=== PATIENT | male | born 1965 | race Caucasian/White ===

== ENCOUNTER 2017-04-14 15:29 | Emergency (ER) | payer MEDICARE, OTHER ==
[~2017-04-14] VITALS: Ht 188 cm; Wt 106.6 kg
[2017-04-14] MEDS ORDERED: IV NORMAL SALINE 1000ML BAG 1,000 ML IV SCH (15:54)
[2017-04-14] MEDS ORDERED: ONDANSETRON PF 4 MG/2 ML VIAL. IV ONE (16:00)
[2017-04-14] MEDS ORDERED: LIDO:MAALOX:DONNATAL 1:1:1 15 ML SINGLE DOSE SWSW ONE (16:00)
[2017-04-14] MEDS ORDERED: FAMOTIDINE 20 MG/2 ML VIAL IVP ONE (16:00)
[2017-04-14] MEDS ORDERED: fentaNYL PF VIAL 100 MCG/2 ML VIAL IV PRN (16:00)
--- NOTE | 2017-04-14 16:04 | PHYS DOC ---
Adult General Chief Complaint Chief Complaint: ABDOMINAL PAIN HPI HPI Patient is a 51 year old male who presents with complaint of abdominal pain. Patient states this pain started earlier today. Patient states that the pain is sharp and located in his upper abdomen. On my evaluation, the patient stated his pain level was 8 out of 10. Patient denies any associated fever, vomiting, or bloody stools. The patient states that he has history of gastric motility problems and states he follows with a GI doctor at [facility]. Patient states that he has had similar episodes in the past. Patient states that he has had to visit an emergency department in the past for his symptoms and stated that they improves when he received nausea medicine and pain medicine. Patient states he is scheduled to see his freelance writer on May 10 to undergo endoscopy and injection of Botox into his stomach to improve gastric emptying. Patient states however he was experiencing too much pain and decided to come to the emergency department for evaluation. Patient states that he takes Prilosec and ranitidine at home for treatment of his condition. Review of Systems Review of Systems Constitutional: Denies fever or chills [] Eyes: Denies change in visual acuity, redness, or eye pain [] HENT: Denies nasal congestion or sore throat [] Respiratory: Denies cough or shortness of breath [] Cardiovascular: Denies chest pain or edema[] GI: Abdominal pain, denies nausea, vomiting, or bloody stools[] : Denies dysuria or hematuria [] Musculoskeletal: Denies back pain or joint pain [] Integument: Denies rash or skin lesions [] Neurologic: Denies headache, focal weakness or sensory changes [] All other systems were reviewed and found to be within normal limits, except as documented in this note. Current Medications Current Medications Current Medications Medications (Trade) Dose Ordered Sig/Sergio Start Time Stop Time Status Last Admin Dose Admin Famotidine (Pepcid Vial) 20 mg 1X ONCE 04/14/17 16:00 04/14/17 16:03 DC 04/14/17 16:00 20 MG Fentanyl Citrate (Fentanyl 2ml Vial) 50 mcg PRN Q15MIN PRN 04/14/17 16:00 04/15/17 15:59 04/14/17 16:11 50 MCG Multi-Ingredient Mouthwash/Gargle (Gi Cocktail Single Dose) 15 ml 1X ONCE 04/14/17 16:00 04/14/17 16:03 DC 04/14/17 16:00 15 ML Ondansetron HCl (Zofran) 4 mg 1X ONCE 04/14/17 16:00 04/14/17 16:03 DC 04/14/17 16:00 4 MG Sodium Chloride 1,000 ml @ 1,000 mls/hr Q1H 04/14/17 15:54 04/14/17 16:53 DC 04/14/17 15:54 1,000 MLS/HR Allergies Allergies Allergies Coded Allergies Type Severity Reaction Last Updated Verified No Known Drug Allergies 04/14/17 No Physical Exam Physical Exam Constitutional: Alert, afebrile, appears in moderate discomfort. [] HENT: Normocephalic, atraumatic, bilateral external ears normal, oropharynx moist, no oral exudates, nose normal. [] Eyes: PERRLA, EOMI, conjunctiva normal, no discharge. [] Neck: Normal range of motion, no tenderness, supple, no stridor. [] Cardiovascular:Heart rate regular rhythm, no murmur [] Lungs & Thorax: Bilateral breath sounds clear to auscultation [] Abdomen: Bowel sounds normal, soft, epigastric tenderness to palpation with mild guarding, no rebound tenderness, no masses, no pulsatile masses. [] Skin: Warm, dry, no erythema, no rash. [] Back: No tenderness, no CVA tenderness. [] Extremities: No tenderness, no cyanosis, no clubbing, ROM intact, no edema. [] Neurologic: Alert and oriented X 3, normal motor function, normal sensory function, no focal deficits noted. [] Current Patient Data Vital Signs Vital Signs Date Time Temp Pulse Resp B/P (MAP) Pulse Ox O2 Delivery O2 Flow Rate FiO2 04/14/17 17:30 16 95 Room Air 04/14/17 15:45 97.5 85 147/86 (106) 97.5 Lab Values Laboratory Tests Test 04/14/17 15:55 White Blood Count 5.8 x10^3/uL (4.0-11.0) Red Blood Count 4.48 x10^6/uL (4.30-5.70) Hemoglobin 13.1 g/dL (13.0-17.5) Hematocrit 38.1 % (39.0-53.0) L Mean Corpuscular Volume 85 fL (79-100) Mean Corpuscular Hemoglobin 29 pg (25-35) Mean Corpuscular Hemoglobin Concent 34 g/dL (31-37) Red Cell Distribution Width 14.4 % (11.5-14.5) Platelet Count 168 x10^3/uL (140-400) Neutrophils (%) (Auto) 59 % (31-73) Lymphocytes (%) (Auto) 30 % (24-48) Monocytes (%) (Auto) 9 % (0-9) Eosinophils (%) (Auto) 2 % (0-3) Basophils (%) (Auto) 1 % (0-3) Neutrophils # (Auto) 3.4 x10^3uL (1.8-7.7) Lymphocytes # (Auto) 1.7 x10^3/uL (1.0-4.8) Monocytes # (Auto) 0.5 x10^3/uL (0.0-1.1) Eosinophils # (Auto) 0.1 x10^3/uL (0.0-0.7) Basophils # (Auto) 0.0 x10^3/uL (0.0-0.2) Urine Collection Type Unknown Urine Color Yellow Urine Clarity Clear Urine pH 8.0 Urine Specific [place] 1.025 Urine Protein Negative mg/dL (NEG-TRACE) Urine Glucose (UA) Negative mg/dL (NEG) Urine Ketones (Stick) Negative mg/dL (NEG) Urine Blood Negative (NEG) Urine Nitrite Negative (NEG) Urine Bilirubin Negative (NEG) Urine Urobilinogen Dipstick 1.0 mg/dL (0.2 mg/dL) Urine Leukocyte Esterase Trace (NEG) Urine RBC 1-2 /HPF (0-2) Urine WBC 1-4 /HPF (0-4) Urine Amorphous Sediment Present /HPF Urine Bacteria 0 /HPF (0-FEW) Urine Hyaline Casts Few /HPF Urine Mucus Mod /LPF Sodium Level 136 mmol/L (136-145) Potassium Level 3.8 mmol/L (3.5-5.1) Chloride Level 102 mmol/L (98-107) Carbon Dioxide Level 26 mmol/L (21-32) Anion Gap 8 (6-14) Blood Urea Nitrogen 19 mg/dL (8-26) Creatinine 1.0 mg/dL (0.7-1.3) Estimated GFR (Cockcroft-Gault) 78.8 BUN/Creatinine Ratio 19 (6-20) Glucose Level 98 mg/dL (70-99) Calcium Level 8.9 mg/dL (8.5-10.1) Total Bilirubin 1.3 mg/dL (0.2-1.0) H Aspartate Amino Transferase (AST) 39 U/L (15-37) H Alanine Aminotransferase (ALT) 66 U/L (16-63) H Alkaline Phosphatase 148 U/L (46-116) H Total Protein 7.7 g/dL (6.4-8.2) Albumin 3.6 g/dL (3.4-5.0) Albumin/Globulin Ratio 0.9 (1.0-1.7) L Lipase 135 U/L (73-393) Laboratory Tests 04/14/17 15:55 Laboratory Tests 04/14/17 15:55 EKG EKG Interpreted by me: Heart rate 65, sinus rhythm, normal intervals, leftward axis , no acute ST/T-wave abnormalities present[] Radiology/Procedures Radiology/Procedures [facility] [address] [place] [address] 3 view acute abdominal series interpreted by me: Nonobstructive bowel gas pattern, no free air under the diaphragm, no pulmonary infiltrates or effusions IMAGING REPORT Signed PATIENT: LAURA PETERSON ACCOUNT: [id number] : 1965 LOCATION: ER AGE: 51 SEX: M EXAM STATUS: REG ER ORD. PHYSICIAN: ANDREW MCKENNA MD REASON: upper abdominal pain, elevated liver function tests PROCEDURE: ABDOMEN LTD Ultrasound of the right upper quadrant of the abdomen 04/14/2017 CLINICAL HISTORY: Abdominal pain with elevated liver function tests. TECHNIQUE: A real-time ultrasound examination of the right upper quadrant of the abdomen was performed. Multiple images were obtained. FINDINGS: The gallbladder is not visualized consistent with a cholecystectomy. The common bile duct measures 6.5 mm in diameter which is within normal limits. The liver is normal in size measuring 16.6 cm in length. Increased echogenicity of the liver parenchyma is seen consistent with mild fatty infiltration. No focal abnormality of the liver is seen. The visualized portions of pancreas and right kidney are within normal limits. IMPRESSION: 1. Post cholecystectomy. 2. Fatty infiltration of the liver. Electronically signed by: Javi Villaseñor MD (04/14/2017 6:02 PM) [facility] DICTATED and SIGNED BY: JAVI VILLASEÑOR MD DATE: 04/14/17 1752 CC: ANDREW MCKENNA MD; JOEL TOVAR MD ~ [] Course & Med Decision Making Course & Med Decision Making Pertinent Labs and Imaging studies reviewed. (See chart for details) Patient was given IV fluids, fentanyl, GI cocktail and Zofran in the emergency department. On reevaluation, symptoms have improved. Patient had mildly elevated liver enzymes which are likely due to presence of fatty liver. No other acute pathology noted on workup. Patient's vital signs are stable and patient is appropriate for outpatient follow-up at this time. Recommended follow -up with patient's GI doctor in the next 5-7 days and to continue on home medications as previously prescribed. Recommended return to the emergency department for any worsening symptoms. Patient voiced understanding and in agreement with treatment plan. Dragon Disclaimer Dragon Disclaimer This electronic medical record was generated, in whole or in part, using a voice recognition dictation system. Departure Departure Impression: Primary Impression: Epigastric abdominal pain Additional Impression: Elevated transaminase level Disposition: 01 HOME, SELF-CARE Condition: IMPROVED Patient Instructions: Abdominal Pain (Nonspecific) Additional Instructions: Follow-up with your freelance writer in 5-7 days for reevaluation. Continue on your home medications as previously prescribed. Return to the emergency department for any worsening symptoms. Problem Qualifiers ANDREW MCKENNA MD Apr 14, 2017 16:04
[2017-04-14 16:18] LABS: BASO % 1 % (0-3); EOS % 2 % (0-3); HEMATOCRIT 38.1 % (39.0-53.0); HEMOGLOBIN 13.1 g/dL (13.0-17.5); LYMPH # 1.7 x10^3/uL (1.0-4.8); LYMPH % 30 % (24-48); MEAN CORPUSCULAR HEMOGLOBIN 29 pg (25-35); MEAN CORPUSCULAR HGB CONC 34 g/dL (31-37); MEAN CORPUSCULAR VOLUME 85 fL (79-100); MONO % 9 % (0-9); NEUT % 59 % (31-73); PLATELET COUNT 168 x10^3/uL (140-400); RED BLOOD COUNT 4.48 x10^6/uL (4.30-5.70); RED CELL DISTRIBUTION WIDTH 14.4 % (11.5-14.5); WHITE BLOOD COUNT 5.8 x10^3/uL (4.0-11.0)
--- NOTE | 2017-04-14 16:18 | EKG ---
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
[2017-04-14 16:20] LABS: BILIRUBIN,URINE NEGATIVE (NEG); GLUCOSE,URINE NEGATIVE (NEG); NITRITE,URINE NEGATIVE (NEG); PROTEIN,URINE NEGATIVE (NEG-TRACE)
[2017-04-14 16:28] LABS: CALCIUM 8.9 mg/dL (8.5-10.1); GFR 78.8; POTASSIUM 3.8 mmol/L (3.5-5.1)
[2017-04-14 16:30] LABS: ALBUMIN 3.6 g/dL (3.4-5.0); ALBUMIN/GLOBULIN RATIO 0.9 (1.0-1.7); TOTAL BILIRUBIN 1.3 mg/dL (0.2-1.0); TOTAL PROTEIN 7.7 g/dL (6.4-8.2)
[2017-04-14 17:00] LABS: BACTERIA,URINE 0 /HPF (0-FEW)
--- NOTE | 2017-04-14 18:05 | RAD ---
Ultrasound of the right upper quadrant of the abdomen 04/14/2017 CLINICAL HISTORY: Abdominal pain with elevated liver function tests. TECHNIQUE: A real-time ultrasound examination of the right upper quadrant of the abdomen was performed. Multiple images were obtained. FINDINGS: The gallbladder is not visualized consistent with a cholecystectomy. The common bile duct measures 6.5 mm in diameter which is within normal limits. The liver is normal in size measuring 16.6 cm in length. Increased echogenicity of the liver parenchyma is seen consistent with mild fatty infiltration. No focal abnormality of the liver is seen. The visualized portions of pancreas and right kidney are within normal limits. IMPRESSION: 1. Post cholecystectomy. 2. Fatty infiltration of the liver. Electronically signed by: Javi Villaseñor MD (04/14/2017 6:02 PM) [facility]
[2017-04-14 18:46] VITALS: BP 122/78
--- NOTE | 2017-04-15 08:30 | RAD ---
ACUTE ABDOMEN SERIES History:abdominal pain, epigastric pain for one day Comparison: 07/13/2010 Findings:Single view of the chest and single supine and upright views of the abdomen are submitted. There is no infiltrate, pleural fluid, pneumothorax. Heart size is within normal limits. No free air is identified. There is some scattered gas in the large and small bowel, overall nonobstructive bowel gas pattern. There has been cholecystectomy. Impression: 1.No acute abnormality is identified.
== END 2017-04-14 18:59 | disposition home or self-care (01) ==
LOC: ER 15:29
DX: R10.13 Epigastric pain (principal); R74.0 Nonspecific elevation of levels of transaminase and lactic acid dehydrogenase [LDH]
CPT/HCPCS: 36415; 74022; 76705; 80053; 81001; 83690; 85025; 87086; 93005; 96361; 96374; 96375; 99285; J2405; J3010; J7030; S0028

== ENCOUNTER 2017-04-16 17:31 | Emergency (ER) | payer MEDICARE, OTHER ==
[~2017-04-16] VITALS: Ht 188 cm; Wt 106.6 kg
--- NOTE | 2017-04-16 18:34 | EKG ---
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
[2017-04-16] MEDS ORDERED: HYOSCYAMINE 0.125 MG TAB.RAPDIS PO ONE (18:45)
[2017-04-16] MEDS ORDERED: LIDO:MAALOX:DONNATAL 1:1:1 15 ML SINGLE DOSE SWSW ONE (18:45)
[2017-04-16] MEDS ORDERED: OMEP20TA63 PO (18:51)
--- NOTE | 2017-04-16 18:52 | PHYS DOC ---
Past Medical History Past Medical History: Bipolar, GERD, Other Additional Past Medical Histor: CHRONIC BACK PAIN, EXERCISED INDUCED ASTHMA, Past Surgical History: Cholecystectomy, Tonsillectomy, Other Additional Past Surgical Histo: BILATERAL EYE SURGERY, RT ELBOW SURGERY, ABD SURGERY Alcohol Use: None Drug Use: None Adult General Chief Complaint Chief Complaint: ABDOMINAL PAIN HPI HPI Patient is a 51 year old gentleman who presents here today complaining of left upper quadrant pain. Patient reports she's had a history of chronic abdominal pain in that area for years. Patient reports he been treated for GERD multiple times in the past. Patient reports that he's had a fundoplication secondary to what appears to be a hiatal hernia. Patient reports pain to his left upper quadrant that increased with food. Patient has any fevers shakes chills. Patient reports she's had one episode of nausea vomiting and 2 episodes of diarrhea. Patient has any shortness of breath radiating pain. Patient has any melena or bright red blood per rectum. Patient has a dysuria frequency or urgency. Patient denies any history of hypertension diabetes liver lung or kidney problems. Patient does not smoke drink or do any drugs. Patient denies any relieving or accident exacerbating factors and his abdominal pain. Patient denies any pain radiating down his arms jaw or back. Patient has any diaphoresis or shortness of breath. Patient denies any exertional component to the discomfort. Patient does denies any change with rest. Patient reports he's never had any cardiac history in the past. Review of systems: Constitutional: Denies fever or chills Eyes: Denies change in visual acuity, redness, or eye pain HENT: Denies nasal congestion or sore throat Respiratory: Denies cough or shortness of breath All other systems were reviewed and found to be within normal limits, except as documented in this note. Physical exam: Constitutional: Well developed, well nourished, no acute distress, non-toxic appearance. HENT: Normocephalic, atraumatic, bilateral external ears normal, nose normal. Eyes: PERRLA, EOMI, conjunctiva normal, no discharge. Neck: Normal range of motion, no tenderness, supple, no stridor. Cardiovascular: Heart rate regular rhythm, Lungs & Thorax: Bilateral breath sounds clear to auscultation no wheezing rales or rhonchi. No egophony. No E to a changes not tachypneic. Abdomen: No abdominal distention. Soft no rebound or guarding 100% reproducible tenderness to palpation to his left upper quadrant. Skin: Warm, dry, no erythema, no rash. Back: Normal spinal curvature Extremities: No tenderness, no cyanosis, no clubbing, ROM intact, no edema. Neurologic: Alert and oriented X 3, normal motor function, normal sensory function, no focal deficits noted. Psychologic: Affect normal, judgement normal, mood normal. Assessment and plan: 1. 51-year-old gentleman who presents here today secondary to left upper quadrant abdominal pain that he reports is identical to his prior gastritis pain. She reports the pain today is similar to the pain that he had when he was here 2 days ago. Patient had full workup then which was unremarkable. On the ER the patient be given a GI cocktail Levsin and feels much better. Patient currently does not present with signs or symptoms that'll be highly consistent with cardiac ischemia, PE, dissection, LA, pneumonia,. Patient is resting comfortably in the room #no distress. Plan will be discharged home we'll start Prilosec OTC twice a day and will have him follow-up with primary care doctor in the morning for reevaluation. Patient's EKG today reveals normal sinus rhythm at a heart rate of [address]-T wave abnormalities. No evidence of ST elevation LA. As interpreted by ER physician. Current Medications Current Medications Current Medications Medications (Trade) Dose Ordered Sig/Sergio Start Time Stop Time Status Last Admin Dose Admin Hyoscyamine (Anaspaz) 0.125 mg 1X ONCE 04/16/17 18:45 04/16/17 18:46 04/16/17 18:28 0.125 MG Multi-Ingredient Mouthwash/Gargle (Gi Cocktail Single Dose) 15 ml 1X ONCE 04/16/17 18:45 04/16/17 18:46 04/16/17 18:27 15 ML Allergies Allergies Allergies Coded Allergies Type Severity Reaction Last Updated Verified No Known Drug Allergies 04/14/17 No Current Patient Data Vital Signs Vital Signs Date Time Temp Pulse Resp B/P (MAP) Pulse Ox O2 Delivery O2 Flow Rate FiO2 04/16/17 18:17 64 106/69 (81) 97 Room Air 04/16/17 17:36 98.0 24 98.0 EKG EKG [] Radiology/Procedures Radiology/Procedures [] Course & Med Decision Making Course & Med Decision Making Pertinent Labs and Imaging studies reviewed. (See chart for details) [] Dragon Disclaimer Dragon Disclaimer This electronic medical record was generated, in whole or in part, using a voice recognition dictation system. Departure Departure Impression: Primary Impression: Gastritis Additional Impression: Abdominal pain Disposition: HOME, SELF-CARE Condition: IMPROVED Referrals: JOEL TOVAR MD (PCP) Patient Instructions: Abdominal Pain (Nonspecific), Gastritis, Adult Scripts Omeprazole Magnesium (PRILOSEC OTC) 20 Mg Tablet.dr 1 TAB PO DAILY, #30 TAB 3 Refills Prov: JD BELLAMY MD 04/16/17 Problem Qualifiers JD BELLAMY MD Apr 16, 2017 18:51
[2017-04-16 18:59] VITALS: BP 124/77
[2017-05-17] MEDS ORDERED: ONDA4TAB10 SL (17:31)
== END 2017-04-16 18:59 | disposition home or self-care (01) ==
LOC: ER 17:31
DX: K29.70 Gastritis, unspecified, without bleeding (principal); K21.9 Gastro-esophageal reflux disease without esophagitis; G89.29 Other chronic pain; J45.990 Exercise induced bronchospasm; Z90.49 Acquired absence of other specified parts of digestive tract
CPT/HCPCS: 93005; 99283-25

== ENCOUNTER 2017-05-03 07:25 | Emergency (ER) | payer MEDICARE, OTHER ==
[~2017-05-03] VITALS: Ht 188 cm; Wt 106.6 kg
[~2017-05-03 07:25] MED LIST: OMEP20TA63 PO
[2017-05-03 08:15] LABS: BILIRUBIN,URINE NEGATIVE (NEG); GLUCOSE,URINE NEGATIVE (NEG); NITRITE,URINE NEGATIVE (NEG); PROTEIN,URINE NEGATIVE (NEG-TRACE); UROBILINOGEN,URINE 0.2 mg/dL (0.2 mg/dL)
[2017-05-03] MEDS ORDERED: IOHEXOL 300 MG/ML 100ML VIAL. IV ONE (08:15)
[2017-05-03 08:26] LABS: BASO % 1 % (0-3); EOS % 3 % (0-3); HEMATOCRIT 38.8 % (39.0-53.0); HEMOGLOBIN 13.3 g/dL (13.0-17.5); LYMPH # 1.7 x10^3/uL (1.0-4.8); LYMPH % 30 % (24-48); MEAN CORPUSCULAR HEMOGLOBIN 29 pg (25-35); MEAN CORPUSCULAR HGB CONC 34 g/dL (31-37); MEAN CORPUSCULAR VOLUME 85 fL (79-100); MONO % 8 % (0-9); NEUT % 58 % (31-73); PLATELET COUNT 188 x10^3/uL (140-400); RED BLOOD COUNT 4.55 x10^6/uL (4.30-5.70); WHITE BLOOD COUNT 5.6 x10^3/uL (4.0-11.0)
--- NOTE | 2017-05-03 08:27 | EKG ---
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
[2017-05-03 08:29] LABS: BACTERIA,URINE FEW /HPF (0-FEW); RBC,URINE RARE /HPF (0-2); SQUAMOUS EPITHELIAL CELL,UR OCC /LPF; WBC,URINE RARE /HPF (0-4)
[2017-05-03] MEDS ORDERED: KETOROLAC 30 MG/ML INJ. IV ONE (08:30)
[2017-05-03] MEDS ORDERED: CONTRAST GIVEN MC PRN (08:30)
[2017-05-03 08:33] LABS: CALCIUM 8.8 mg/dL (8.5-10.1); CREATININE 0.9 mg/dL (0.7-1.3); POTASSIUM 3.7 mmol/L (3.5-5.1)
[2017-05-03 08:39] LABS: ALBUMIN 3.7 g/dL (3.4-5.0); ALBUMIN/GLOBULIN RATIO 0.9 (1.0-1.7); TOTAL BILIRUBIN 0.7 mg/dL (0.2-1.0); TOTAL PROTEIN 7.8 g/dL (6.4-8.2)
[2017-05-03 09:08] LABS: CKMB MASS < 0.5 ng/mL (0.0-3.6); CREATINE KINASE 85 U/L (39-308)
--- NOTE | 2017-05-03 09:26 | RAD ---
CT of the abdomen and pelvis with contrast, 05/03/2017: History: Back and bilateral flank pain Multidetector CT imaging was performed following an IV bolus injection of iodinated contrast material. No oral contrast material was administered for this study. There is minimal linear atelectasis or scarring in the lung bases. The gallbladder is surgically absent. The liver is of lower than normal density suggesting hepatic steatosis. There is no evidence of a hepatic mass or bile duct dilatation. No pancreatic abnormality is detected. The spleen is of normal size. No renal or adrenal abnormality is detected. The abdominal aorta is of normal caliber. No abdominal or pelvic adenopathy is seen. Prostatic calcifications are present. The bowel loops are not dilated. The appendix is visualized and shows no abnormality. No free air or free fluid is evident in the abdomen or pelvis. There are mild scattered degenerative changes in the spine. IMPRESSION: No acute abdominal or pelvic abnormality is detected. PQRS Compliance Statement: One or more of the following individualized dose reduction techniques were utilized for this examination: 1. Automated exposure control 2. Adjustment of the mA and/or kV according to patient size 3. Use of iterative reconstruction technique
--- NOTE | 2017-05-03 09:36 | PHYS DOC ---
Past Medical History Past Medical History: Bipolar, GERD, Other Additional Past Medical Histor: CHRONIC BACK PAIN, EXERCISED INDUCED ASTHMA, Past Surgical History: Cholecystectomy, Tonsillectomy, Other Additional Past Surgical Histo: BILATERAL EYE SURGERY, RT ELBOW SURGERY, ABD SURGERY Alcohol Use: None Drug Use: None Adult General Chief Complaint Chief Complaint: GI PROBLEM HPI HPI Patient is a 51 year old male who presents with abdominal pain and bilateral pain to his lower back. The patient does have an extensive GI history and states that he had fundoplication, a wrapping procedure that he is unsure of the name of and is scheduled to have Botox injected into his stomach next week at . He states that he woke up about 1:30 this morning with his normal gastric reflux. He also noticed that he did have Flank pain and that worried him. He states that he is tired of being in pain and is very overwhelmed. Due to the secondary pain in his lower back as well as his fatigue he decided to present to the ED. He was worked up about 2 weeks ago at in anticipation of his procedure next week. Review of Systems Review of Systems Constitutional: Denies fever or chills [] Eyes: Denies change in visual acuity, redness, or eye pain [] HENT: Denies nasal congestion or sore throat [] Respiratory: Denies cough or shortness of breath [] Cardiovascular: No additional information not addressed in HPI [] GI: See history of present illness : Patient states that he has had some trouble starting his stream Musculoskeletal: Denies back pain or joint pain [] Integument: Denies rash or skin lesions [] Neurologic: Denies headache, focal weakness or sensory changes [] Endocrine: Denies polyuria or polydipsia [] All other systems were reviewed and found to be within normal limits, except as documented in this note. Current Medications Current Medications Current Medications Medications (Trade) Dose Ordered Sig/Sergio Start Time Stop Time Status Last Admin Dose Admin Info (Do NOT chart on this entry -- for MONITORING) 1 each PRN DAILY PRN 05/03/17 08:30 05/05/17 08:29 Iohexol (Omnipaque 300 Mg/ml) 75 ml 1X ONCE 05/03/17 08:15 05/03/17 08:17 DC 05/03/17 08:50 75 ML Ketorolac Tromethamine (Toradol) 30 mg 1X ONCE 05/03/17 08:30 05/03/17 08:31 DC 05/03/17 08:45 30 MG Allergies Allergies Allergies Coded Allergies Type Severity Reaction Last Updated Verified No Known Drug Allergies 04/14/17 No Physical Exam Physical Exam Constitutional: Well developed, well nourished, no acute distress, non-toxic appearance. [] HENT: Normocephalic, atraumatic, bilateral external ears normal, oropharynx moist, no oral exudates, nose normal. [] Eyes: PERRLA, EOMI, conjunctiva normal, no discharge. [] Neck: Normal range of motion, no tenderness, supple, no stridor. [] Cardiovascular:Heart rate regular rhythm, no murmur [] Lungs & Thorax: Bilateral breath sounds clear to auscultation [] Abdomen: Bowel sounds normal, soft, no tenderness, no masses, no pulsatile masses. [] Skin: Warm, dry, no erythema, no rash. [] Back: No tenderness, no CVA tenderness. [] Extremities: No tenderness, no cyanosis, no clubbing, ROM intact, no edema. [] Neurologic: Alert and oriented X 3, normal motor function, normal sensory function, no focal deficits noted. [] Psychologic: Affect normal, judgement normal, mood normal. [] Current Patient Data Vital Signs Vital Signs Date Time Temp Pulse Resp B/P (MAP) Pulse Ox O2 Delivery O2 Flow Rate FiO2 05/03/17 09:00 72 115/65 (82) 96 Room Air 05/03/17 08:30 20 05/03/17 07:39 97.8 97.8 Lab Values Laboratory Tests Test 05/03/17 08:04 05/03/17 08:15 Urine Collection Type Unknown Urine Color Straw Urine Clarity Clear Urine pH 6.0 Urine Specific Cora <=1.005 Urine Protein Negative mg/dL (NEG-TRACE) Urine Glucose (UA) Negative mg/dL (NEG) Urine Ketones (Stick) Negative mg/dL (NEG) Urine Blood Negative (NEG) Urine Nitrite Negative (NEG) Urine Bilirubin Negative (NEG) Urine Urobilinogen Dipstick 0.2 mg/dL (0.2 mg/dL) Urine Leukocyte Esterase Negative (NEG) Urine RBC Rare /HPF (0-2) Urine WBC Rare /HPF (0-4) Urine Squamous Epithelial Cells Occ /LPF Urine Bacteria Few /HPF (0-FEW) White Blood Count 5.6 x10^3/uL (4.0-11.0) Red Blood Count 4.55 x10^6/uL (4.30-5.70) Hemoglobin 13.3 g/dL (13.0-17.5) Hematocrit 38.8 % (39.0-53.0) L Mean Corpuscular Volume 85 fL (79-100) Mean Corpuscular Hemoglobin 29 pg (25-35) Mean Corpuscular Hemoglobin Concent 34 g/dL (31-37) Red Cell Distribution Width 15.0 % (11.5-14.5) H Platelet Count 188 x10^3/uL (140-400) Neutrophils (%) (Auto) 58 % (31-73) Lymphocytes (%) (Auto) 30 % (24-48) Monocytes (%) (Auto) 8 % (0-9) Eosinophils (%) (Auto) 3 % (0-3) Basophils (%) (Auto) 1 % (0-3) Neutrophils # (Auto) 3.3 x10^3uL (1.8-7.7) Lymphocytes # (Auto) 1.7 x10^3/uL (1.0-4.8) Monocytes # (Auto) 0.5 x10^3/uL (0.0-1.1) Eosinophils # (Auto) 0.1 x10^3/uL (0.0-0.7) Basophils # (Auto) 0.0 x10^3/uL (0.0-0.2) Sodium Level 140 mmol/L (136-145) Potassium Level 3.7 mmol/L (3.5-5.1) Chloride Level 103 mmol/L (98-107) Carbon Dioxide Level 25 mmol/L (21-32) Anion Gap 12 (6-14) Blood Urea Nitrogen 10 mg/dL (8-26) Creatinine 0.9 mg/dL (0.7-1.3) Estimated GFR (Cockcroft-Gault) 89.0 BUN/Creatinine Ratio 11 (6-20) Glucose Level 111 mg/dL (70-99) H Calcium Level 8.8 mg/dL (8.5-10.1) Total Bilirubin 0.7 mg/dL (0.2-1.0) Aspartate Amino Transferase (AST) 40 U/L (15-37) H Alanine Aminotransferase (ALT) 59 U/L (16-63) Alkaline Phosphatase 172 U/L (46-116) H Creatine Kinase 85 U/L (39-308) Creatine Kinase MB (Mass) < 0.5 ng/mL (0.0-3.6) Creatine Kinase MB Relative Index % (0-4) Troponin I Quantitative < 0.017 ng/mL (0.000-0.055) Total Protein 7.8 g/dL (6.4-8.2) Albumin 3.7 g/dL (3.4-5.0) Albumin/Globulin Ratio 0.9 (1.0-1.7) L Laboratory Tests 05/03/17 08:15 Laboratory Tests 05/03/17 08:15 EKG EKG [] Radiology/Procedures Radiology/Procedures [] PATIENT: LAURA PETERSON ACCOUNT: [id number] : 1965 LOCATION: ER AGE: 51 SEX: M EXAM STATUS: REG ER ORD. PHYSICIAN: JAKE DRIVER APRN REASON: flank pain PROCEDURE: CT ABD PELV W/ IV CONTRST ONLY CT of the abdomen and pelvis with contrast, 05/03/2017: History: Back and bilateral flank pain Multidetector CT imaging was performed following an IV bolus injection of iodinated contrast material. No oral contrast material was administered for this study. There is minimal linear atelectasis or scarring in the lung bases. The gallbladder is surgically absent. The liver is of lower than normal density suggesting hepatic steatosis. There is no evidence of a hepatic mass or bile duct dilatation. No pancreatic abnormality is detected. The spleen is of normal size. No renal or adrenal abnormality is detected. The abdominal aorta is of normal caliber. No abdominal or pelvic adenopathy is seen. Prostatic calcifications are present. The bowel loops are not dilated. The appendix is visualized and shows no abnormality. No free air or free fluid is evident in the abdomen or pelvis. There are mild scattered degenerative changes in the spine. IMPRESSION: No acute abdominal or pelvic abnormality is detected. PQRS Compliance Statement: One or more of the following individualized dose reduction techniques were utilized for this examination: 1. Automated exposure control 2. Adjustment of the mA and/or kV according to patient size 3. Use of iterative reconstruction technique DICTATED and SIGNED BY: ROBERT MALDONADO MD DATE: 05/03/17 0916 CC: JAKE DRIVER APRN; JOEL TOVAR MD ~ Course & Med Decision Making Course & Med Decision Making Pertinent Labs and Imaging studies reviewed. (See chart for details) []1. GERD 2. Back Pain Your labs and CT scan did not show any gross abnormality in your abdomen or back. Your urinalysis was clear of infection or blood. Please keep your follow- up appointment with your primary care provider that is scheduled for tomorrow. Take your home medications as prescribed and return to the ED if worsening. Dragon Disclaimer Dragon Disclaimer This electronic medical record was generated, in whole or in part, using a voice recognition dictation system. Departure Departure Referrals: JOEL TOVAR MD (PCP) JAKE DRIVER APRN May 03, 2017 09:36
[2017-05-03 10:00] VITALS: BP 114/66
== END 2017-05-03 10:26 | disposition home or self-care (01) ==
LOC: ER 07:25
DX: K21.9 Gastro-esophageal reflux disease without esophagitis (principal); M54.5 Low back pain; G89.29 Other chronic pain; F31.9 Bipolar disorder, unspecified; J45.909 Unspecified asthma, uncomplicated; Z90.49 Acquired absence of other specified parts of digestive tract; Z98.890 Other specified postprocedural states
CPT/HCPCS: 36415; 74177; 80053; 81001; 82553; 84484; 85025; 93005; 96374; 99285; J1885; Q9967

== ENCOUNTER 2017-05-17 15:21 | Emergency (ER) | payer MEDICARE, OTHER ==
[2017-05-17] MEDS: IV NORMAL SALINE 1000ML BAG 1,000 ML IV (16:02)
[2017-05-17] MEDS: KETOROLAC 30 MG/ML INJ. IV (16:04)
[2017-05-17] MEDS: ONDANSETRON PF 4 MG/2 ML VIAL. IV (16:04)
[2017-05-17 16:10] LABS: ADD MAN DIFF? NO
[2017-05-17 16:11] LABS: BASO % 1 % (0-3); EOS % 3 % (0-3); HEMATOCRIT 36.6 % (39.0-53.0); HEMOGLOBIN 12.6 g/dL (13.0-17.5); LYMPH # 2.1 x10^3/uL (1.0-4.8); LYMPH % 45 % (24-48); MEAN CORPUSCULAR HEMOGLOBIN 30 pg (25-35); MEAN CORPUSCULAR HGB CONC 34 g/dL (31-37); MEAN CORPUSCULAR VOLUME 86 fL (79-100); MONO % 13 % (0-9); NEUT % 39 % (31-73); PLATELET COUNT 166 x10^3/uL (140-400); RED BLOOD COUNT 4.28 x10^6/uL (4.30-5.70); RED CELL DISTRIBUTION WIDTH 15.2 % (11.5-14.5); WHITE BLOOD COUNT 4.8 x10^3/uL (4.0-11.0)
[2017-05-17 16:19] LABS: ANION GAP 10 (6-14); BLOOD UREA NITROGEN 11 mg/dL (8-26); BUN/CREATININE RATIO 11 (6-20); CALCIUM 8.5 mg/dL (8.5-10.1); CARBON DIOXIDE 26 mmol/L (21-32); CHLORIDE 104 mmol/L (98-107); GFR 78.8; GLUCOSE 93 mg/dL (70-99); POTASSIUM 3.9 mmol/L (3.5-5.1); SODIUM 140 mmol/L (136-145)
[2017-05-17 16:24] LABS: ALBUMIN 3.7 g/dL (3.4-5.0); ALBUMIN/GLOBULIN RATIO 1.1 (1.0-1.7); ALK PHOS 168 U/L (46-116); ALT (SGPT) 57 U/L (16-63); AST (SGOT) 37 U/L (15-37); TOTAL BILIRUBIN 1.4 mg/dL (0.2-1.0); TOTAL PROTEIN 7.1 g/dL (6.4-8.2)
[2017-05-17 16:25] LABS: BILIRUBIN,URINE NEGATIVE (NEG); GLUCOSE,URINE NEGATIVE (NEG); NITRITE,URINE NEGATIVE (NEG); PH,URINE 6.5; PROTEIN,URINE NEGATIVE (NEG-TRACE)
[2017-05-17 16:31] LABS: TROPONINI < 0.017 ng/mL (0.000-0.055)
[2017-05-17 16:40] LABS: BACTERIA,URINE 0 /HPF (0-FEW)
[2017-05-17] MEDS ORDERED: CONTRAST GIVEN MC (16:45)
[2017-05-17] MEDS ORDERED: IOHEXOL 300 MG/ML 100ML VIAL. IV (17:15)
[2017-05-17] MEDS ORDERED: fentaNYL PF VIAL 100 MCG/2 ML VIAL IV (17:15)
== END 2017-05-17 17:54 | disposition home or self-care (01) ==
LOC: ER 15:21
DX: R10.12 Left upper quadrant pain (principal); R10.32 Left lower quadrant pain; R11.0 Nausea; F31.9 Bipolar disorder, unspecified; K31.84 Gastroparesis; E66.9 Obesity, unspecified; Z68.30 Body mass index [BMI] 30.0-30.9, adult
CPT/HCPCS: 36415; 74177; 80053; 81001; 83690; 84484; 85025; 93005; 96361; 96374; 96375; 99285-25; J1885; J2405; J7030

== ENCOUNTER 2017-06-11 11:40 | Emergency (ER) | payer MEDICARE, OTHER | END 2017-06-11 11:51 | disposition left against medical advice (07) | LOC: ER 11:40 | DX: R51 Headache (principal); Z53.21 Procedure and treatment not carried out due to patient leaving prior to being seen by health care provider ==